=== PATIENT | male | born 2005 | race Hispanic/Latino ===

== ENCOUNTER 2024-05-10 11:48 | Inpatient (IN) | payer OTHER ==
[~2024-05-10] VITALS: Ht 167.6 cm; Wt 60.3 kg
[2024-05-10 12:32] LABS: HEMATOCRIT 42.4 % (42.0-52.0); HEMOGLOBIN 14.2 g/dl (13.5-17.5); MEAN CORPUSCULAR HGB CONC 33.5 g/dl (32.0-36.5); MEAN CORPUSCULAR VOLUME 86.7 fl (80.0-96.0); PLATELET COUNT, AUTOMATED 190 10^3/uL (150-450); RED BLOOD COUNT 4.89 10^6/uL (4.30-6.10); WHITE BLOOD COUNT 6.7 10^3/uL (4.0-10.0)
[2024-05-10 13:03] LABS: ETHYL ALCOHOL (ETHANOL) < 0.003 % (0.000-0.010)
[2024-05-10 13:05] LABS: SALICYLATE LEVEL < 3.0 MG/DL (<30)
[2024-05-10 13:29] LABS: ALBUMIN 4.3 G/DL (3.2-5.2); ALKALINE PHOSPHATASE 106 U/L (46-116); ALT/SGPT 32 U/L (7.0-40); AST/SGOT 26 U/L (<34); BILIRUBIN,DIRECT 0.2 MG/DL (<0.4); BILIRUBIN,TOTAL 0.7 MG/DL (0.3-1.2); BLOOD UREA NITROGEN 11 MG/DL (9-23); CALCIUM LEVEL 9.8 MG/DL (8.5-10.1); CARBON DIOXIDE LEVEL 29 MMOL/L (20-31); CHLORIDE LEVEL 105 MMOL/L (98-107); CREATININE FOR GFR 0.72 MG/DL (0.70-1.30); GLUCOSE, FASTING 89 MG/DL (60-100); POTASSIUM SERUM 4.2 MMOL/L (3.5-5.1); SODIUM LEVEL 140 MMOL/L (136-145); TOTAL PROTEIN 7.3 G/DL (5.7-8.2)
[2024-05-10 13:38] LABS: AMPHETAMINES LEVEL URINE NEGATIVE (NEGATIVE); BARBITURATES URINE NEGATIVE (NEGATIVE)
[2024-05-10 13:39] LABS: BENZODIAZEPINES URINE NEGATIVE (NEGATIVE); CANNABINOIDS URINE NEGATIVE (NEGATIVE); COCAINE METABOLITE URINE NEGATIVE (NEGATIVE); METHADONE URINE NEGATIVE (NEGATIVE); OPIATES URINE NEGATIVE (NEGATIVE); PHENCYCLIDINE URINE NEGATIVE (NEGATIVE)
[2024-05-10] MEDS ORDERED: MAALOX 30 ML SUSP *UDC PO PRN (15:30)
[2024-05-10] MEDS ORDERED: ACETAMINOPHEN TAB 650MG DOSE (2X325MG) PO PRN (15:30)
[2024-05-10] MEDS ORDERED: diphenhydrAMINE 25MG CAP PO PRN (15:30)
[2024-05-10] MEDS ORDERED: IBUPROFEN 400MG TAB PO PRN (15:30)
[2024-05-10] MEDS ORDERED: MOM 30ML SUSPENSION UDC PO PRN (15:30)
[2024-05-10] MEDS ORDERED: HOME MED LIST COMPLETE! XX SCH (16:05)
[2024-05-10 18:26] VITALS: BP 120/74; TEMP 98; O2SAT 99
[2024-05-11 06:37] VITALS: BP 138/72; TEMP 97.7; O2SAT 99
[2024-05-11 18:32] VITALS: BP 122/72; TEMP 98.2; O2SAT 100
[2024-05-11] MEDS: SERTRALINE HCL 25 MG TABLET PO SCH (20:23)
[2024-05-12 06:03] VITALS: BP 106/52; TEMP 97.3; O2SAT 100
[2024-05-12 16:15] VITALS: BP 130/92; TEMP 97.9; O2SAT 99
[2024-05-12] MEDS: SERTRALINE HCL 50 MG TAB PO SCH (20:27)
[2024-05-13 06:18] VITALS: BP 150/74; TEMP 97.3; O2SAT 100
[2024-05-13 16:01] VITALS: BP 124/62; TEMP 97.6; O2SAT 98
[2024-05-13] MEDS: traZODone 50 MG TAB PO PRN (20:26)
[2024-05-14 06:15] VITALS: BP 137/72; TEMP 97.6; O2SAT 99
[2024-05-14 15:54] VITALS: BP 131/65; TEMP 97.6; O2SAT 99
[2024-05-15 06:12] VITALS: BP 152/70; TEMP 97.6; O2SAT 99
[2024-05-15 15:23] VITALS: BP 136/85; TEMP 97.2; O2SAT 100
[2024-05-16 06:13] VITALS: BP 135/77; TEMP 97.8; O2SAT 99
[2024-05-16 17:03] VITALS: BP_SYST 122; BP_SYST 133; BP_DIAS 56; BP_DIAS 73; TEMP 98.8; O2SAT 98
[2024-05-16] MEDS ORDERED: SERT50TA29 PO (17:18)
[2024-05-17 06:17] VITALS: BP 116/58; TEMP 97; O2SAT 96
== END 2024-05-17 11:48 | disposition home or self-care (01) | DRG 885 ==
LOC: M ED 11:48 → EDBD 11:48 → M ED INP 15:29 → M PSY 17:53
PROVIDERS: ADMIT Psychiatry & Neurology Psychiatry; ATTEND Psychiatry & Neurology Psychiatry
DX: F32.2 Major depressive disorder, single episode, severe without psychotic features (principal); F50.00 Anorexia nervosa, unspecified; R45.851 Suicidal ideations; F41.9 Anxiety disorder, unspecified